=== PATIENT | male | born 1995 | race Caucasian/White ===

== ENCOUNTER 2019-08-13 15:11 | Emergency (ER) | payer OTHER ==
[~2019-08-13] VITALS: Ht 182.9 cm; Wt 74.8 kg
[~2019-08-13 15:11] MED LIST: ACETAMINOPHEN-1 EAC1 PO; NOHOMEMEDICATIONS
[2019-08-13 15:20] VITALS: BP 141/87
[2019-08-13 15:31] LABS: URINE BILIRUBIN NEGATIVE (Negative); URINE BLOOD NEGATIVE (Negative); URINE CLARITY CLEAR; URINE COLOR YELLOW; URINE GLUCOSE-RANDOM NEGATIVE (Negative); URINE KETONES NEGATIVE (Negative); URINE LEUKOCYTES-REFLEX NEGATIVE (Negative); URINE NITRITE-REFLEX NEGATIVE (Negative); URINE PROTEIN NEGATIVE (Negative); URINE UROBILINOGEN 0.2 E.U./dl (0.2-1.0)
[2019-08-13] MEDS ORDERED: METRONIDAZOLE500 M4 PO (15:31)
== END 2019-08-13 15:36 | disposition home or self-care (01) ==
LOC: M.ERS 15:11
PROVIDERS: Nurse Practitioner Family
DX: Z20.2 Contact with and (suspected) exposure to infections with a predominantly sexual mode of transmission (principal); F17.210 Nicotine dependence, cigarettes, uncomplicated

== ENCOUNTER 2019-10-30 13:04 | Emergency (ER) | payer OTHER ==
[~2019-10-30] VITALS: Ht 182.9 cm; Wt 72.6 kg
[~2019-10-30 13:04] MED LIST changes: +METRONIDAZOLE500 M4 PO
[2019-10-30 13:29] LABS: URINE BILIRUBIN NEGATIVE (Negative); URINE BLOOD NEGATIVE (Negative); URINE CLARITY CLEAR; URINE COLOR YELLOW; URINE GLUCOSE-RANDOM NEGATIVE (Negative); URINE KETONES NEGATIVE (Negative); URINE LEUKOCYTES-REFLEX NEGATIVE (Negative); URINE NITRITE-REFLEX NEGATIVE (Negative); URINE PROTEIN NEGATIVE (Negative); URINE UROBILINOGEN 0.2 E.U./dl (0.2-1.0)
[2019-10-30] MEDS ORDERED: ACYCLOVIR 400400 MG PO (13:47)
[2019-10-30] MEDS ORDERED: NORCO 5-325 TA1 EAC2 PO (13:47)
[2019-10-30 13:52] VITALS: BP 132/77
== END 2019-10-30 13:52 | disposition home or self-care (01) ==
LOC: M.ERS 13:04
PROVIDERS: Emergency Medicine Emergency Medical Services
DX: A60.01 Herpesviral infection of penis (principal)

== ENCOUNTER 2020-03-09 03:56 | Emergency (ER) | payer OTHER ==
[~2020-03-09] VITALS: Ht 182.9 cm; Wt 72.6 kg
[~2020-03-09 03:56] MED LIST changes: +ACYCLOVIR 400400 MG PO; +NORCO 5-325 TA1 EAC2 PO
[2020-03-09 05:34] LABS: URINE BILIRUBIN NEGATIVE (Negative); URINE BLOOD TRACE (Negative); URINE CLARITY CLEAR; URINE COLOR YELLOW; URINE GLUCOSE-RANDOM NEGATIVE (Negative); URINE KETONES NEGATIVE (Negative); URINE LEUKOCYTES-REFLEX NEGATIVE (Negative); URINE NITRITE-REFLEX NEGATIVE (Negative); URINE PROTEIN NEGATIVE (Negative); URINE SPECIFIC GRAVITY <= 1.005 (1.005-1.030); URINE UROBILINOGEN 0.2 E.U./dl (0.2-1.0)
[2020-03-09 05:42] LABS: ABSOLUTE BASOPHILS 0.1 thou/uL (0.0-0.2); ABSOLUTE LYMPHOCYTES 2.5 thou/uL (0.8-5.3); ABSOLUTE MONOCYTES 0.8 thou/uL (0.0-1.2); ABSOLUTE NEUTROPHILS 15.4 thou/uL (1.6-8.1); BASOPHILS 0.3 %; EOSINOPHILS 0.1 %; HEMATOCRIT 48.2 % (42.0-52.0); HEMOGLOBIN 16.2 gm/dL (14.0-18.0); LYMPHOCYTES 13.3 %; MCH 29.8 pg (26.0-34.0); MCHC 33.6 g/dL (28.0-37.0); MCV 88.7 fL (80.0-100.0); MONOCYTES 4.4 %; MPV 7.9 fl. (7.2-11.1); NUCLEATED RBCS 0 /100WBC; PLATELET COUNT* 309 thou/uL (150-400); POLYS 81.9 %; RBC 5.43 mil/uL (4.50-6.00); RDW-CV 14.6 % (10.5-14.5); WBC 18.8 thou/uL (4.0-11.0)
[2020-03-09 05:45] LABS: AMP/METHAMP Negative (Negative); BARBITURATES Negative (Negative); BENZODIAZEPINES Negative (Negative); COCAINE Negative (Negative); METHADONE Negative (Negative); OPIATES Negative (Negative); PCP Negative (Negative); THC POSITIVE (Negative)
[2020-03-09 05:51] LABS: CALCIUM 8.4 mg/dL (8.5-10.1); POTASSIUM 3.7 mmol/L (3.5-5.1)
[2020-03-09 05:56] LABS: ALBUMIN 4.1 g/dL (3.4-5.0); ALCOHOL 177 mg/dL (<10); SALICYLATE < 2.8 mg/dL (2.8-20.0); TOTAL BILIRUBIN 0.7 mg/dL (<0.1-1.0); TOTAL PROTEIN 7.5 g/dL (6.4-8.2)
[2020-03-09 06:02] LABS: ACETAMINOPHEN < 2 ug/mL (10-30)
[2020-03-10 20:22] VITALS: BP 141/90
== END 2020-03-10 20:22 ==
LOC: M.ERS 03:56
PROVIDERS: Emergency Medicine
DX: F10.129 Alcohol abuse with intoxication, unspecified (principal); Y90.6 Blood alcohol level of 120-199 mg/100 ml; R45.851 Suicidal ideations; Z20.828 Contact with and (suspected) exposure to other viral communicable diseases; Z79.899 Other long term (current) drug therapy

== ENCOUNTER 2020-10-28 12:57 | Emergency (ER) | payer OTHER ==
[~2020-10-28] VITALS: Ht 182.9 cm; Wt 70.3 kg
[2020-10-28] MEDS ORDERED: HYDROCODON-ACE1 EA11 PO (14:20)
[2020-10-28 14:30] VITALS: BP 109/56
== END 2020-10-28 14:30 | disposition home or self-care (01) ==
LOC: M.ERS 12:57
DX: S92.354A Nondisplaced fracture of fifth metatarsal bone, right foot, initial encounter for closed fracture (principal); W01.0XXA Fall on same level from slipping, tripping and stumbling without subsequent striking against object, initial encounter; Y93.89 Activity, other specified; Y92.89 Other specified places as the place of occurrence of the external cause; Y99.8 Other external cause status

== ENCOUNTER 2021-03-30 14:57 | Emergency (ER) | payer OTHER ==
[~2021-03-30] VITALS: Ht 182.9 cm; Wt 72.6 kg
[~2021-03-30 14:57] MED LIST changes: +HYDROCODON-ACE1 EA11 PO
[2021-03-30 15:08] VITALS: BP 114/62
[2021-03-30] MEDS ORDERED: VALTREX 500 MG500 M1 PO (15:09)
[2021-03-30] MEDS ORDERED: PREDNISONE 20 M20 M1 PO (16:10)
== END 2021-03-30 16:14 | disposition home or self-care (01) ==
LOC: M.ERS 14:57
DX: S86.912A Strain of unspecified muscle(s) and tendon(s) at lower leg level, left leg, initial encounter (principal); Z79.899 Other long term (current) drug therapy; X58.XXXA Exposure to other specified factors, initial encounter; Y93.89 Activity, other specified; Y92.89 Other specified places as the place of occurrence of the external cause; Y99.8 Other external cause status